=== PATIENT | female | born 1990 | race African-American/Black ===

== ENCOUNTER 2021-08-20 08:26 | Inpatient (IN) ==
[2021-08-20] MEDS ORDERED: OXYTOCIN 30 UNITS/500 ML BAG IV PRN ×3 (09:08→21:37)
[2021-08-20 09:37] LABS: Hematocrit (blood only) 34.6 % (37-47); Hemoglobin 10.8 g/dL (12.0-16.0); Mean Corpuscular Hgb Conc 31.2 g/dL (32-36); Mean Corpuscular Volume 73.6 fL (80-100); Mean Platelet Volume 8.6 fL (7.4-10.4); Platelet Count 288 K/uL (130-400); RDW Coefficient of Variation 14.6 % (11.5-14.5); RDW Standard Deviation 39.1 fL (36.4-46.3); White Blood Count 10.58 K/uL (4.8-10.8)
--- NOTE | 2021-08-20 12:58 | Labor Progress Brief Note ---
Date of Service August 20, 2021 Assessment & Plan Admission and Anticipated Discharge Date Admission Date: August 20, 2021 Physical Exam Genitourinary: Manual OB Exam: + cervical dilation 4 cm, + cervical effacement 90% and + station -1 OB Exam Monitor Tracing: + external FHT monitor used, + external uterine monitor used, + category I and + normal FHT variability Results & Data ([facility]) Vital Signs (Past 12 Hours) Vital Signs Temp Pulse Resp BP 08/20/21 11:36 36.7 C 88 20 141/84 H 08/20/21 09:26 37.0 C 18 08/20/21 09:13 92 H 133/90
--- NOTE | 2021-08-20 13:03 | History & Physical Report ---
Date of Service August 20, 2021 Assessment & Plan Admission and Anticipated Discharge Date Admission Date: August 20, 2021 History of Present Illness Chief Complaint: induction of labor for term and gestational diabetes Primary Care Provider: NO PCP 30 F P0000 at term admitted for induction of labor for gestational diabetes. Allergies Allergy/AdvReac Type Severity Reaction Status Date / Time No Known Allergies Allergy Verified 08/20/21 08:58 Home Medications Medication Instructions Recorded Confirmed Type prenat.vits,shahram,[id number] 1 tab PO DAILY 08/20/21 08/20/21 History Patient History Medical History Gestational diabetes Insulin No known health problems Surgical History No history of previous surgery Family History Other No known health problems Social History Smoking Status: Never smoker Hx Alcohol Use: No Hx Substance Use: No Preferred Language: Gujarati Communication Ability Comment: Interpretor Visual Impairment: No Limitations Hearing Ability: Normal Linen Room Houseperson Required: Yes Beliefs That Will Affect Care: None marital status: marital status details: Dajuan Briseno Current Living Situation: Spouse Current Living Situation Comment: Lives in apartment current occupational status: unemployed current occupation: Homemaker Other Information That Helps Us Care for You: No Safety Concerns Comment: Unable to address Diet Comment: Vegetarian Assistive Devices: None OB History primip GDM diet controlled GBS positive [employer]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 Review of Systems All systems reviewed & are unremarkable except as noted in HPI & below Physical Exam Constitutional: WD/WN, vitals as above comfortable Eyes: PERRL, conjunctivae normal, anicteric sclerae Respiratory: normal respiratory effort, lungs clear to auscultation Cardiovascular: RRR, no murmur, no edema Skin: no rashes, warm and dry Neurologic: patellar DTR's 2+ bilat, sensation intact Psychiatric: A+Ox3, euthymic affect Genitourinary: no vaginal lesions, no adnexal mass Manual OB Exam: + cervical dilation 4 cm, + cervical effacement 90% and + station -1 OB Exam Monitor Tracing: + external FHT monitor used, + external uterine monitor used, + category I and + normal FHT variability Results & Data ([facility]) Vital Signs (Past 12 Hours) Vital Signs Temp Pulse Resp BP 08/20/21 11:36 36.7 C 88 20 141/84 H 08/20/21 09:26 37.0 C 18 08/20/21 09:13 92 H 133/90 Code Status & VTE Plan VTE Prophylaxis Plan VTE Prophylaxis will be ordered: No
[2021-08-20] MEDS ORDERED: PENICILLIN G POTASSIUM 6 MU in DEXTROSE 5% 250 ML IV ONE (13:30)
[2021-08-20] MEDS: LACTATED RINGER'S 1,000 ML IV PRN ×2 (13:35→16:30)
[2021-08-20] MEDS ORDERED: BUPIVACAINE 0.25% 30 ML VIAL ONE (15:54)
[2021-08-20] MEDS ORDERED: ePHEDrine sulfate 50 MG/ML AMP ONE (15:54)
[2021-08-20] MEDS ORDERED: SODIUM CHLORIDE 0.9% INJ 10 ML VIAL ONE (15:54)
[2021-08-20] MEDS ORDERED: fentaNYL 2MCG/ML ROPIVACAINE 1.25MG/ML 100 ML BAG EPI ONE (15:55)
[2021-08-20] MEDS ORDERED: fentaNYL citrate 100 MCG/2 ML VIAL ONE (15:55)
--- NOTE | 2021-08-20 16:18 | Anesthesiology Consultation ---
Date of Service August 20, 2021 Assessment & Plan Chart Review Chart Review: Acceptable Risk for Surgery, Patient NOT seen in Pre Admission Testing and Acceptable Risk for Labor Epidural Consults Requested none ASA ASA2 Proposed Anesthesia Anesthesia Type: Labor Epidural and CSE Risk / Benefits Reviewed With: PT / POA / Parent / Guardian, Accepts Plan and Informed Consent Obtained Additional Comments: covid test negative History Height/Weight Height: 5 ft 5 in Weight: 68.946 kg Allergies Allergy/AdvReac Type Severity Reaction Status Date / Time No Known Allergies Allergy Verified 08/20/21 08:58 Medications Home Medications Medication Instructions Recorded Confirmed Last Taken prenat.vits,shahram,[id number] 1 tab PO DAILY 08/20/21 08/20/21 08/19/21 Active Medications Generic Name Dose Route Start Last Admin Trade Name Freq PRN Reason Stop Dose Admin Lactated Ringer's 1,000 mls @ 125 mls/hr 08/20/21 09:08 08/20/21 13:35 Lr IV 08/22/21 09:07 125 mls/hr .Q8H PRN Administration L&D Protocol Protocol Oxytocin 30 units in 500 mls @ 3 mls/hr 08/20/21 13:14 08/20/21 15:05 Pitocin IV 09/19/21 13:13 0.18 units/hr .Q24H PRN 3 mls/hr Labor Induction/Augmentation Titration Protocol 0.18 UNITS/HR NPO Date Last Intake of Fluids: 08/20/21 Time Last Intake of Fluids: 15:00 Date Last Intake of Solids: 08/20/21 Time Last Intake of Solids: 07:30 Past Medical History Medical History Gestational diabetes Insulin No known health problems Exercise / Class Metabolic Activity II 4-5 Yardwork/Stairs/Walk up hill Past Family History Family History Other No known health problems Past Surgical History Surgical History No history of previous surgery Past Anesthesia History No Hx of Anesthesia Complications and No Family Hx of Anesthesia Complications History of PONV No Hx of PONV and No Hx of Motion Sickness Social History Smoking Status: Never smoker Hx Alcohol Use: No Hx Substance Use: No Physical Exam Vital Signs Last Vital Signs Temp 36.7 C 08/20/21 15:04 Pulse 99 H 08/20/21 16:13 Resp 18 08/20/21 15:04 BP 154/95 H 08/20/21 16:10 Pulse Ox 98 08/20/21 16:13 Constitutional + obese ENMT Mouth: no dentition abnormality Thyromental Distance: < 3.5 Finger Breadths Mallampati Class: II Neck normal visual inspection and trachea midline Respiratory normal respiratory effort Auscultation: lungs clear to auscultation bilaterally Cardiovascular Rate/Rhythm: regular rate and regular rhythm Heart Sounds: no murmur Vessels: no carotid bruit Musculoskeletal Spine: lumbar spine normal to inspection; normal cervical ROM Neurologic moves all extremities Motor/Sensory: no sensory deficit Psychiatric Orientation: alert and oriented x 3 Testing Laboratory Results 08/20/21 09:24 08/20/21 10:26 POC Glucose 80
[2021-08-20] MEDS ORDERED: NALOXONE HCL 1 MG in SODIUM CHLORIDE 0.9% 1000ML 1,000 ML IV PRN (16:40)
[2021-08-20] MEDS ORDERED: ONDANSETRON INJ 2 MG/ML 2 ML VIAL IV PRN (16:40)
[2021-08-20] MEDS ORDERED: NALOXONE HCL 0.4 MG/1 ML VIAL/CARP IV PRN (16:40)
[2021-08-20] MEDS ORDERED: PROMETHAZINE HCL 25 MG in SODIUM CHLORIDE 0.9% 50 ML IV PRN (16:40)
[2021-08-20] MEDS ORDERED: fentaNYL 2MCG/ML ROPIVACAINE 1.25MG/ML 100 ML BAG EPI PRN (16:40)
[2021-08-20] MEDS ORDERED: NALBUPHINE HCL INJ 10 MG/ML AMP IV PRN (16:40)
[2021-08-20] MEDS ORDERED: diphenhydrAMINE 50 MG/ML VIAL IV PRN (16:40)
[2021-08-20] MEDS ORDERED: ePHEDrine sulfate 50 MG/ML AMP IV PRN (16:40)
[2021-08-20] MEDS ORDERED: PENICILLIN G POTASSIUM 3 MU in DEXTROSE 5% 100 ML IV PRN (17:30)
--- NOTE | 2021-08-20 17:37 | Labor Progress Brief Note ---
Date of Service August 20, 2021 Assessment & Plan Admission and Anticipated Discharge Date Admission Date: August 20, 2021 Physical Exam Genitourinary: Manual OB Exam: + cervical dilation 5 cm, + cervical effacement 90%, + station -2 and + amniotic fluid (AROM clear fluid with Amni-hook) clear Results & Data ([facility]) Vital Signs (Past 12 Hours) Vital Signs Temp Pulse Resp BP Pulse Ox 08/20/21 17:33 95 H 100 08/20/21 17:28 83 97 08/20/21 17:27 80 120/74 08/20/21 17:23 89 97 08/20/21 17:18 95 H 98 08/20/21 17:13 89 97 08/20/21 17:10 85 125/83 08/20/21 17:08 81 99 08/20/21 17:03 92 H 99 08/20/21 16:58 92 H 97 08/20/21 16:55 93 H 123/78 08/20/21 16:53 101 H 128/79 97 08/20/21 16:51 100 H 122/73 08/20/21 16:49 105 H 18 119/75 08/20/21 16:48 101 H 96 08/20/21 16:47 100 H 18 118/72 08/20/21 16:45 104 H 18 119/70 08/20/21 16:43 102 H 18 124/78 96 08/20/21 16:41 106 H 18 128/75 08/20/21 16:40 106 H 18 125/66 08/20/21 16:38 100 H 135/71 96 08/20/21 16:36 96 H 18 141/82 H 08/20/21 16:34 93 H 18 166/93 H 08/20/21 16:33 94 H 95 08/20/21 16:32 92 H 123/89 08/20/21 16:29 92 H 137/86 08/20/21 16:28 100 H 97 08/20/21 16:23 102 H 97 08/20/21 16:18 103 H 98 08/20/21 16:13 99 H 98 08/20/21 16:10 100 H 154/95 H 08/20/21 16:08 97 H 98 08/20/21 16:03 100 H 100 08/20/21 15:04 36.7 C 100 H 18 144/86 H 08/20/21 14:13 96 H 18 128/91 08/20/21 13:40 93 H 18 113/80 08/20/21 11:36 36.7 C 88 20 141/84 H 08/20/21 09:26 37.0 C 18 08/20/21 09:13 92 H 133/90
[2021-08-20] MEDS ORDERED: SUPERCREAM 0.870% 15 GM JAR EXT PRN (21:37)
[2021-08-20] MEDS ORDERED: bisacodyL 10 MG SUPP PR PRN (21:37)
[2021-08-20] MEDS ORDERED: ACETAMINOPHEN 325 MG TAB PO PRN (21:37)
[2021-08-20] MEDS ORDERED: HYDROCORTISONE ACETATE 25 MG SUPP PR PRN (21:37)
[2021-08-20] MEDS ORDERED: BENZOCAINE 20% AER SPR 82.5 GM CAN EXT PRN (21:37)
[2021-08-20] MEDS ORDERED: DIPHTHERIA/TETANUS/PERTUSSIS 0.5 ML SYR/VIAL IM ONE (21:37)
--- NOTE | 2021-08-20 21:37 | Anesthesia Procedure Note ---
Date of Service August 20, 2021 Anesthesia Post Epidural Note Vital Signs Vital Signs: Temp Pulse Resp BP Pulse Ox 36.9 C 114 H 18 124/73 96 08/20/21 21:00 08/20/21 21:32 08/20/21 21:00 08/20/21 21:32 08/20/21 21:28 Pain Intensity Bilateral Abdomen: Pain Intensity: 3 Notes Mental Status: alert / awake / arousable and participated in evaluation Nausea / Vomiting: adequately controlled Pain: adequately controlled Airway Patency, RR, SpO2: stable & adequate BP & HR: stable & adequate Hydration State: stable & adequate Neuraxial Anesthesia: was administered and sensory block is resolving Anesthetic Complications: no major complications apparent Epidural: Removed without complications and With tip intact
--- NOTE | 2021-08-20 21:41 | Delivery Summary ---
Vaginal Delivery Summary Date of Service August 20, 2021 Vaginal Delivery Summary Delivery Note live male WILLIAN over intact perineum with delayed cord clamping and Apgars 8/9 weight pending. Cord blood obtained followed by spontaneous delivery of intact placenta. Small first degree tear repaired wit 3/0 Vicryl suture. EBL 100 ml. Final sponge and instrument count are correct. Mom and baby stable.
[2021-08-20] MEDS: IBUPROFEN 600 MG TAB PO PRN (23:38)
[2021-08-21] MEDS ORDERED: METHYLERGONOVINE MALEATE 0.2 MG/ML AMP ONE (03:24)
[2021-08-21 06:10] LABS: Hematocrit (blood only) 28.4 % (37-47); Mean Corpuscular Hemoglobin 23.1 pg (25-34); Mean Corpuscular Hgb Conc 31.7 g/dL (32-36); Mean Platelet Volume 8.7 fL (7.4-10.4); Platelet Count 245 K/uL (130-400); RDW Coefficient of Variation 14.5 % (11.5-14.5); RDW Standard Deviation 38.7 fL (36.4-46.3); Red Blood Count 3.89 M/uL (4.2-5.4); White Blood Count 15.54 K/uL (4.8-10.8)
--- NOTE | 2021-08-21 07:47 | Obstetrical Progress Note ---
Date of Service August 21, 2021 Assessment & Plan Admission and Anticipated Discharge Date Admission Date: August 20, 2021 Subjective Patient is seen and examined. She feels well, no complaints. Ambulated to with dizziness and passes cloths Received Methergine IM once and stopped. Has elam now. Tolerating regular diet with out N&V Bleeding is minimal No fever/ chills/ CP/ SOB/ N&V/ Leg pain Breast feeding without problems Vital Signs Temp Pulse Pulse Resp BP BP Pulse Ox 08/21/21 03:05 36.6 C 91 H 16 120/81 08/21/21 01:10 37.1 C 86 16 131/87 08/20/21 23:31 118 H 129/81 08/20/21 23:30 107 H 18 125/77 08/20/21 23:16 107 H 125/77 08/20/21 23:01 107 H 125/82 08/20/21 23:00 107 H 20 125/77 08/20/21 22:46 89 128/75 08/20/21 22:32 97 H 124/89 08/20/21 22:30 97 H 18 124/89 08/20/21 22:16 97 H 131/75 08/20/21 22:15 102 H 18 135/77 08/20/21 22:01 102 H 135/77 08/20/21 22:00 102 H 18 135/77 08/20/21 21:46 105 H 130/78 08/20/21 21:45 105 H 18 130/78 08/20/21 21:32 114 H 124/73 08/20/21 21:30 105 H 18 130/78 08/20/21 21:28 121 H 96 08/20/21 21:23 121 H 98 08/20/21 21:18 120 H 97 08/20/21 21:13 113 H 96 08/20/21 21:11 96 H 134/74 08/20/21 21:08 104 H 97 08/20/21 21:03 109 H 98 08/20/21 21:00 36.9 C 18 08/20/21 20:58 109 H 98 08/20/21 20:57 106 H 136/88 08/20/21 20:53 111 H 94 08/20/21 20:48 101 H 93 08/20/21 20:43 106 H 94 08/20/21 20:40 109 H 128/75 08/20/21 20:38 108 H 94 08/20/21 20:33 116 H 99 08/20/21 20:30 18 08/20/21 20:28 111 H 97 08/20/21 20:27 102 H 127/68 08/20/21 20:23 110 H 96 08/20/21 20:18 111 H 96 08/20/21 20:13 100 H 95 08/20/21 20:10 94 H 117/67 08/20/21 20:08 92 H 95 08/20/21 20:03 100 H 95 08/20/21 20:00 18 08/20/21 19:58 103 H 95 08/20/21 19:55 96 H 119/66 08/20/21 19:53 106 H 97 08/20/21 19:48 96 H 96 Lab Results 08/20/21 08/20/21 08/20/21 Range/Units 09:24 10:26 Unknown WBC 10.58 (4.8-10.8) K/uL RBC 4.70 (4.2-5.4) M/uL Hgb 10.8 L (12.0-16.0) g/dL Hct 34.6 L (37-47) % MCV 73.6 L (80-100) fL MCH 23.0 L (25-34) pg MCHC 31.2 L (32-36) g/dL RDW Std Deviation 39.1 (36.4-46.3) fL RDW Coeff of James 14.6 H (11.5-14.5) % Plt Count 288 (130-400) K/uL MPV 8.6 (7.4-10.4) fL POC Glucose 80 (70-99) mg/dl SARS-CoV-2 (PCR) Cancelled Influenza Type A (PCR) Cancelled Influenza Type B (PCR) Cancelled RSV (RT-PCR) Cancelled SARS-CoV-2, RNA, NAAT (NEGATIVE) 08/20/21 08/21/21 Range/Units Unknown 05:48 WBC 15.54 H (4.8-10.8) K/uL RBC 3.89 L (4.2-5.4) M/uL Hgb 9.0 L (12.0-16.0) g/dL Hct 28.4 L (37-47) % MCV 73.0 L (80-100) fL MCH 23.1 L (25-34) pg MCHC 31.7 L (32-36) g/dL RDW Std Deviation 38.7 (36.4-46.3) fL RDW Coeff of James 14.5 (11.5-14.5) % Plt Count 245 (130-400) K/uL MPV 8.7 (7.4-10.4) fL POC Glucose (70-99) mg/dl SARS-CoV-2 (PCR) Influenza Type A (PCR) Influenza Type B (PCR) RSV (RT-PCR) SARS-CoV-2, RNA, NAAT NEGATIVE (NEGATIVE) PE: General: Alert, orientedx3, NAD Abd: soft, NT, fundus firm, below Umbilicus Elam is in draining Perineum intact, Lochia rubra minimal Ext; NT, no edema AP: 30 yo s/p , ppd# 1 VSS Afebrile doing well Continue with PO Methergine and iron bid Continue routine care All questions were answered Results & Data ([facility]) Vital Signs (Past 12 Hours) Vital Signs Temp Pulse Pulse Resp BP BP Pulse Ox 08/21/21 03:05 36.6 C 91 H 16 120/81 08/21/21 01:10 37.1 C 86 16 131/87 08/20/21 23:31 118 H 129/81 08/20/21 23:30 107 H 18 125/77 08/20/21 23:16 107 H 125/77 08/20/21 23:01 107 H 125/82 08/20/21 23:00 107 H 20 125/77 08/20/21 22:46 89 128/75 08/20/21 22:32 97 H 124/89 08/20/21 22:30 97 H 18 124/89 08/20/21 22:16 97 H 131/75 08/20/21 22:15 102 H 18 135/77 08/20/21 22:01 102 H 135/77 08/20/21 22:00 102 H 18 135/77 08/20/21 21:46 105 H 130/78 08/20/21 21:45 105 H 18 130/78 08/20/21 21:32 114 H 124/73 08/20/21 21:30 105 H 18 130/78 08/20/21 21:28 121 H 96 08/20/21 21:23 121 H 98 08/20/21 21:18 120 H 97 08/20/21 21:13 113 H 96 08/20/21 21:11 96 H 134/74 08/20/21 21:08 104 H 97 08/20/21 21:03 109 H 98 08/20/21 21:00 36.9 C 18 08/20/21 20:58 109 H 98 08/20/21 20:57 106 H 136/88 08/20/21 20:53 111 H 94 08/20/21 20:48 101 H 93 08/20/21 20:43 106 H 94 08/20/21 20:40 109 H 128/75 08/20/21 20:38 108 H 94 08/20/21 20:33 116 H 99 08/20/21 20:30 18 08/20/21 20:28 111 H 97 08/20/21 20:27 102 H 127/68 08/20/21 20:23 110 H 96 08/20/21 20:18 111 H 96 08/20/21 20:13 100 H 95 08/20/21 20:10 94 H 117/67 08/20/21 20:08 92 H 95 08/20/21 20:03 100 H 95 08/20/21 20:00 18 08/20/21 19:58 103 H 95 08/20/21 19:55 96 H 119/66 08/20/21 19:53 106 H 97 08/20/21 19:48 96 H 96
[2021-08-21] MEDS ORDERED: FERROUS SULFATE 325 MG TAB PO SCH (08:00)
[2021-08-21] MEDS: PRENATAL VITAMIN 1 TAB PO SCH (08:09)
[2021-08-21] MEDS: DOCUSATE SODIUM 100 MG CAP PO SCH ×2 (08:09→20:33)
[2021-08-21] MEDS: FERROUS SULFATE 325 MG TAB PO SCH ×3 (08:09→20:33)
[2021-08-21] MEDS: METHYLERGONOVINE MALEATE 0.2 MG TAB PO SCH ×4 (08:09→20:33)
[2021-08-21] MEDS: IBUPROFEN 600 MG TAB PO PRN (08:27)
[2021-08-21] MEDS ORDERED: PRENATAL VITAMIN 1 TAB PO SCH (09:00)
[2021-08-21 13:23] LABS: Basophils # (auto) 0.01 K/uL (0-0.2); Basophils % (auto) 0.1 %; Eosinophils # (auto) 0.12 K/uL (0-0.5); Eosinophils % (auto) 0.8 %; Hematocrit (blood only) 24.5 % (37-47); Immature Granulocytes # (auto) 0.02 K/uL (0.00-0.02); Immature Granulocytes % (auto) 0.1 %; Lymphocytes # (auto) 1.67 K/uL (1.2-3.4); Lymphocytes % (auto) 11.6 %; Mean Corpuscular Hemoglobin 23.8 pg (25-34); Mean Corpuscular Volume 72.9 fL (80-100); Mean Platelet Volume 8.7 fL (7.4-10.4); Monocytes # (auto) 0.94 K/uL (0.11-0.59); Monocytes % (auto) 6.5 %; Neutrophils # (auto) 11.67 K/uL (1.4-6.5); Neutrophils % (auto) 80.9 %; Platelet Count 218 K/uL (130-400); RDW Coefficient of Variation 14.5 % (11.5-14.5); RDW Standard Deviation 39.1 fL (36.4-46.3); Red Blood Count 3.36 M/uL (4.2-5.4); White Blood Count 14.43 K/uL (4.8-10.8)
[2021-08-21] MEDS: LACTATED RINGER'S 1,000 ML IV PRN ×2 (13:24→20:33)
[2021-08-21 13:30] LABS: Mean Corpuscular Hgb Conc 32.7 g/dL (32-36)
[2021-08-21 13:48] LABS: Microcytosis Present
[2021-08-21] MEDS ORDERED: bisacodyL 5 MG TABEC PO SCH (20:00)
[2021-08-22] MEDS: LACTATED RINGER'S 1,000 ML IV PRN (03:46)
[2021-08-22 07:42] LABS: Hematocrit (blood only) 23.9 % (37-47); Hemoglobin 7.6 g/dL (12.0-16.0)
[2021-08-22] MEDS: METHYLERGONOVINE MALEATE 0.2 MG TAB PO SCH ×3 (09:26→17:10)
[2021-08-22] MEDS: PRENATAL VITAMIN 1 TAB PO SCH (09:26)
[2021-08-22] MEDS: FERROUS SULFATE 325 MG TAB PO SCH (09:27)
[2021-08-22] MEDS: DOCUSATE SODIUM 100 MG CAP PO SCH (09:27)
[2021-08-22] MEDS: IBUPROFEN 600 MG TAB PO PRN (12:37)
--- NOTE | 2021-08-22 13:05 | Obstetrical Progress Note ---
Date of Service August 22, 2021 Subjective Ambulation: ambulating normally Voiding: no voiding problems Passing Gas:: Yes Diet Tolerance:: regular diet Lochia:: Small Feeding Type:: breast feeding Current Pain Level(1-10): 0 doing well no further bleeding Physical Exam Constitutional WD/WN, vitals as above comfortable abdomen soft and non-tender fundus firm no edema neg Milad's for d/c home today Results & Data ([facility]) Vital Signs (Past 12 Hours) Vital Signs Temp Pulse Resp BP Pulse Ox 08/22/21 08:30 37.0 C 112 H 18 111/77 98 08/22/21 03:35 36.5 C 109 H 18 116/79 100 Laboratory Results 08/20/21 08/20/21 08/20/21 09:24 10:26 Unknown WBC 10.58 RBC 4.70 Hgb 10.8 L Hct 34.6 L MCV 73.6 L MCH 23.0 L MCHC 31.2 L RDW Std Deviation 39.1 RDW Coeff of James 14.6 H Plt Count 288 MPV 8.6 Immature Gran % (Auto) Neut % (Auto) Lymph % (Auto) [place] % (Auto) Eos % (Auto) Baso % (Auto) Neut # (Auto) Lymph # (Auto) [place] # (Auto) Eos # (Auto) Baso # (Auto) Immature Gran # (Auto) Microcytosis POC Glucose 80 SARS-CoV-2 (PCR) Cancelled Influenza Type A (PCR) Cancelled Influenza Type B (PCR) Cancelled RSV (RT-PCR) Cancelled SARS-CoV-2, RNA, NAAT 08/20/21 08/21/21 08/21/21 Unknown 05:48 13:15 WBC 15.54 H 14.43 H RBC 3.89 L 3.36 L Hgb 9.0 L 8.0 L Hct 28.4 L 24.5 L MCV 73.0 L 72.9 L MCH 23.1 L 23.8 L MCHC 31.7 L 32.7 RDW Std Deviation 38.7 39.1 RDW Coeff of James 14.5 14.5 Plt Count 245 218 MPV 8.7 8.7 Immature Gran % (Auto) 0.1 Neut % (Auto) 80.9 Lymph % (Auto) 11.6 [place] % (Auto) 6.5 Eos % (Auto) 0.8 Baso % (Auto) 0.1 Neut # (Auto) 11.67 H Lymph # (Auto) 1.67 [place] # (Auto) 0.94 H Eos # (Auto) 0.12 Baso # (Auto) 0.01 Immature Gran # (Auto) 0.02 Microcytosis Present POC Glucose SARS-CoV-2 (PCR) Influenza Type A (PCR) Influenza Type B (PCR) RSV (RT-PCR) SARS-CoV-2, RNA, NAAT NEGATIVE 08/22/21 06:44 WBC RBC Hgb 7.6 L Hct 23.9 L MCV MCH MCHC RDW Std Deviation RDW Coeff of James Plt Count MPV Immature Gran % (Auto) Neut % (Auto) Lymph % (Auto) [place] % (Auto) Eos % (Auto) Baso % (Auto) Neut # (Auto) Lymph # (Auto) [place] # (Auto) Eos # (Auto) Baso # (Auto) Immature Gran # (Auto) Microcytosis POC Glucose SARS-CoV-2 (PCR) Influenza Type A (PCR) Influenza Type B (PCR) RSV (RT-PCR) SARS-CoV-2, RNA, NAAT
== END 2021-08-22 17:40 | disposition home or self-care (01) | DRG 807 ==
LOC: 4S1 08:26 → 4S2 08-21 00:01